=== PATIENT | male | born 2005 | race African-American/Black ===

== ENCOUNTER 2025-02-13 06:13 | Outpatient (CLI) | payer MEDICAID, OTHER ==
[2025-02-13] MEDS ORDERED: LIDOcaine 1%/PF 5ML 10 MG/ML VIAL ONE (06:38)
[2025-02-13] MEDS ORDERED: LIDOcaine 1% 30ml preserv. free vial ONE (06:38)
[2025-02-13] MEDS ORDERED: GADOTERATE MEGLUMINE 7.5 MMOL/15 ML VIAL IV ONE (06:38)
[2025-02-13] MEDS ORDERED: iohexol 300 MG/1 ML 50ml polymer ONE (06:38)
--- NOTE | 2025-02-13 09:38 | RADIOLOGY REPORT ---
C-ARM FLUOROSCOPY: PROCEDURE: Left shoulder MRI arthrogram FLUOROSCOPY TIME: 0.1 Air Kerma: 1 mgy FINDINGS: Spot intraoperative C arm radiographs demonstrating left shoulder MRI arthrogram injection. IMPRESSION: Please refer to surgical report for detailed findings.
--- NOTE | 2025-02-13 09:45 | RADIOLOGY REPORT ---
CLINICAL HISTORY: PAIN IN LEFT SHOULDER TECHNIQUE: Multisequence multiplanar MR arthrogram images of the left shoulder were obtained after the uneventful intra-articular administration of dilute gadolinium contrast under fluoroscopic guidance. For details concerning the contrast injection, refer to the separately dictated same-day conventional arthrogram report. COMPARISON: None FINDINGS: Acromioclavicular joint: There is mild acromioclavicular hypertrophy and mild edema. There is type 1 acromion. Trace fluid in the subacromial / subdeltoid bursa. No contrast in the subacromial/subdeltoid bursa. Rotator cuff tendons: Mild tendinosis of the distal supraspinatus and infraspinatus tendons without evidence of tear. Subscapularis and teres minor tendons are intact. Biceps tendon: No significant tendinosis. No evidence of attrition or tear. Labrum: There is tear of the superior labrum extending anterior to posterior and extending to the posterior superior labrum. No propagation of the tear into the long head biceps tendon. No definite bucket-handle component of the tear visualized. Bones: No fracture or focal marrow contusion. Muscles: Normal muscle bulk. No atrophy. Other: There is adequate distention of the joint with contrast. No loose bodies. There is moderate synovitis in the axillary recess. IMPRESSION: 1. Tear of the superior labrum extending to the posterior superior labrum. 2. Rotator cuff tendinosis without evidence of tear. 3. Mild acromioclavicular hypertrophy.
== END 2025-02-13 23:59 | disposition home or self-care (01) ==
LOC: RAD 06:13
PROVIDERS: ATTEND Orthopaedic Surgery
DX: S43.015A Anterior dislocation of left humerus, initial encounter (principal); S43.432A Superior glenoid labrum lesion of left shoulder, initial encounter; M19.012 Primary osteoarthritis, left shoulder; M25.512 Pain in left shoulder; X58.XXXA Exposure to other specified factors, initial encounter; Y93.89 Activity, other specified; Y92.89 Other specified places as the place of occurrence of the external cause; Y99.8 Other external cause status
CPT/HCPCS: 23350; 73222; 77002; A9575; J2003; J3490; Q9967